=== PATIENT | male | born 1950 | race Caucasian/White ===

== ENCOUNTER → 2018-02-06 | Outpatient (CLI) | payer BC | LOC: M RAD 08:31 | DX: M51.26 Other intervertebral disc displacement, lumbar region (principal); M51.27 Other intervertebral disc displacement, lumbosacral region; M48.061 Spinal stenosis, lumbar region without neurogenic claudication | CPT/HCPCS: 72148 ==

== ENCOUNTER 2019-02-05 10:30 | Inpatient (IN) | payer OTHER, MEDICARE ==
--- NOTE | 2019-02-04 11:38 | HPE ---
DATE OF ADMISSION: 02/12/2019 ATTENDING PHYSICIAN: Dr. Mccoy ADMITTING DIAGNOSES: Back pain, right leg pain. HISTORY: This a pleasant 68-year-old male patient with progressively worsening back pain and pain mainly down his right leg. He has had studies consistent with spinal stenosis and spondylolisthesis of the lumbar spine. He has elected for surgery for his continued symptoms. His symptoms with activities of daily living. He has failed to improve with conservative management. He has been consented by Dr. Mccoy for a right L5 unilateral laminectomy as well as an L4 unilateral laminectomy as well as posterior intertransverse fusion in situ l4 and l5 with the use of right or left iliac crest graft and bone bank graft. MRI is consistent with spinal stenosis and spondylolisthesis at L4-5. Medical optimization through his primary doctor, Dr. Serrano. MEDICAL CONDITIONS: Lumbar spinal stenosis L4-5. Lumbar spondylolisthesis L4-5. Neurogenic claudication. Hypertension. Diabetes type 2. Gastric reflux disease. Elevated cholesterol. Hypothyroidism. CURRENT MEDICATIONS: - gabapentin 100 mg 1 tablet once per day - diclofenac 75 mg 1 tablet once per day. He will discontinue that 5 days prior to surgery. - Prilosec 40 mg 1 tablet once per day - calcium 600 mg 1 tablet with meals twice a day - saw palmetto 500 mg 1 tablet once per day - daily multivitamin - aspirin 81 mg 1 tablet once per day. He will discontinue that 5 days prior to surgery. - paroxetine 10 mg 1 tablet in the morning - lisinopril 2.5 mg 1 tablet once per day - Norvasc 10 mg 1 tablet once per day - Januvia 100 mg 1 tablet once per day - glyburide 5 mg 2 tablets twice a day - Lantus as 13 units daily - vitamin C [id number] - levothyroxine 50 mcg 1 tablet once per day in the morning - Flexeril 10 mg as needed ALLERGIES: 1. CRESTOR. 2. TETRACYCLINE. 3. PENICILLIN. SURGICAL HISTORY: He has had: 1. Hernia repair. 2. Left rotator cuff repair. FAMILY HISTORY: Noncontributory. SOCIAL HISTORY: He does not smoke. He does not use alcohol. He is currently retired. REVIEW OF SYSTEMS: Denies fever or chills. Denies chest pain, shortness breath or cough. Denies difficulty breathing. Denies abdominal pain. Denies nausea or vomiting. Has persistent pain mainly down his right leg, persistent back pain. He has pain with ambulating. Denies any changes in his bowel or bladder habits. PHYSICAL EXAM: Exam today reveals alert well-nourished, well-developed male patient who uses a set of crutches to ambulate. He is in a well-fitting back brace. He grimaces going from the sitting to the standing position. Straight leg raise testing is negative. Deep tendon reflexes are absent knees, ankles. Exam of back reveals the skin to be intact. No erythema, edema or ecchymosis. There is tenderness diffusely around the lumbar spine. His gait is not wide-based. His mood and affect are appropriate. Neck is supple without adenopathy or jugular venous distention (JVD). Lungs are clear to auscultation without rales or wheeze. Heart regular rate and rhythm. Abdomen bowel sounds are present. Current vital signs: Height 67 inches, weight 235 pounds, temperature 98.7, blood pressure 120/70, respirations 18, pulse 87. EKG sinus rhythm. Chest x-ray no acute cardiopulmonary disease process noted. Glucose 195, BUN 21, creatinine 1.0, sodium 143, potassium 4.4. UA within normal limits. WBC count of 4.9, RBC count of 5.1, hemoglobin 15.4, hematocrit 54.2. IMPRESSION: Symptomatic spinal stenosis L4-5 with neurogenic claudication and spondylolisthesis L4-5. PLAN: He was consented by Dr. Mccoy for a right unilateral laminectomy at L4 and L5 with posterior fusion in situ l4 and l5 with the use of iliac crest graft from the right or left hip and use of donor bone from the bone bank. [facility]
[~2019-02-05] VITALS: Ht 172.7 cm; Wt 105.3 kg
[~2019-02-05 10:30] MED LIST: AMLO10TA PO; GABA-843 PO; JANU100T PO; LANTINJ4 SC; LEVO25TA5 PO; LISI-1046 PO; MULTCAP PO; OXYC1TAB23 PO; PARO5TAB PO; PRIL20TA2 PO; SAW160CA PO; VITA100T59 PO; ZOCO10TA PO
[2019-02-12] MEDS ORDERED: LR 1,000 ML IV ONE (06:00)
[2019-02-12] MEDS ORDERED: GABAPENTIN 300 MG CAP PO ONE (06:00)
[2019-02-12] MEDS ORDERED: PERCOCET 5MG/325MG TAB PO ONE (06:00)
[2019-02-12] MEDS ORDERED: BUPIVACAINE HCL 0.5% 10 ML VIAL As Ordered ONE (10:31)
[2019-02-12] MEDS ORDERED: BUPIVACAINE/EPIN 0.25% 30 ML VIAL As Ordered ONE (10:31)
[2019-02-12] MEDS ORDERED: VANCOMYCIN HCL 500 MG/10 ML VIAL (J3370) As Ordered ONE (10:32)
[2019-02-12] MEDS ORDERED: BUPIVACAINE LIPOSOME/PF 1.3% 20ML VIAL (13.3MG/ML)(EXPAREL)(C9290 PER1MG) As Ordered ONE ×2 (10:32→12:56)
[2019-02-12] MEDS ORDERED: EPINEPHrine INJ 1 MG/ML 1ML AMP As Ordered ONE (10:32)
[2019-02-12] MEDS ORDERED: BACITRACIN PWD 50,000 UNITS VIAL As Ordered ONE (10:33)
[2019-02-12] MEDS ORDERED: THROMBIN SOLN 20,000 UNITS KIT As Ordered ONE (10:33)
[2019-02-12] MEDS ORDERED: TRANEXAMIC ACID 100 MG/ML 10ML VIAL As Ordered ONE (10:42)
[2019-02-12] MEDS ORDERED: HumaLOG INSULIN (NovoLOG) PER UNIT As Ordered ONE (10:52)
[2019-02-12] MEDS ORDERED: HumaLOG INSULIN (NovoLOG) PER UNIT SC ONE ×3 (11:00→19:15)
[2019-02-12] MEDS ORDERED: fentaNYL 250 MCG/5 ML INJECTION (J3010) As Ordered ONE (13:49)
[2019-02-12] MEDS ORDERED: PROPOFOL 200 MG/20 ML VIAL As Ordered ONE ×2 (13:49→17:13)
[2019-02-12] MEDS ORDERED: MIDAZOLAM INJ 2 MG/2 ML VIAL (J2250) As Ordered ONE (13:49)
[2019-02-12] MEDS ORDERED: LIDOCAINE 2% INJ 100 MG/5 ML SDV (FOR ANES.) As Ordered ONE (13:49)
[2019-02-12] MEDS ORDERED: ACETAMINOPHEN 1000MG 100ML IV BTL (OFIRMEV) (J0131 PER 10MG) As Ordered ONE (13:49)
[2019-02-12] MEDS ORDERED: dexameTHASONE 4 MG/ML 1ML VIAL (J1100) As Ordered ONE (13:49)
[2019-02-12] MEDS ORDERED: ONDANSETRON 4MG/2ML VIAL (J2405) As Ordered ONE (13:49)
[2019-02-12] MEDS ORDERED: SUGAMMADEX SODIUM 500 MG/5 ML VIAL (BRIDION) As Ordered ONE (13:49)
[2019-02-12] MEDS ORDERED: ePHEDrine SULFATE 25 MG/5 ML(5MG/ML) SYRINGE As Ordered ONE (13:50)
[2019-02-12] MEDS ORDERED: fentaNYL 100 MCG/2 ML INJECTION (J3010) As Ordered ONE ×2 (15:26→16:50)
[2019-02-12] MEDS ORDERED: ROCURONIUM BROMIDE 50 MG/5 ML VIAL As Ordered ONE (18:14)
[2019-02-12] MEDS ORDERED: HYDROMORPHONE HCL 0.5 MG/ 0.5 ML SYRINGE (J1170 PER 1) IV PRN ×2 (18:15→18:30)
[2019-02-12] MEDS ORDERED: LR 1,000 ML IV SCH (18:15)
[2019-02-12] MEDS ORDERED: ONDANSETRON 4MG/2ML VIAL (J2405) IV PRN (18:15)
[2019-02-12] MEDS ORDERED: fentaNYL 100 MCG/2 ML INJECTION (J3010) IV PRN (18:15)
[2019-02-12] MEDS ORDERED: ACETAMINOPHEN TAB 650MG DOSE (2X325MG) PO PRN (18:30)
[2019-02-12] MEDS ORDERED: PERCOCET 5MG/325MG TAB PO PRN (18:30)
[2019-02-12] MEDS: oxyCODONE 5MG TAB PO PRN ×2 (19:10→19:40)
[2019-02-12] MEDS ORDERED: oxyCODONE 5MG TAB As Ordered ONE (19:39)
[2019-02-12 20:06] VITALS: BP 145/87
[2019-02-12 20:35] VITALS: BP 140/86
[2019-02-12] MEDS ORDERED: HumaLOG INSULIN (NovoLOG) PER UNIT SC SCH (21:00)
[2019-02-12] MEDS ORDERED: LEVEMIR (INSULIN DETEMIR) 1 UNITS/0.01ML SC SCH (21:00)
--- NOTE | 2019-02-12 21:20 | HPEPDOC ---
General Date of Admission Feb 12, 2019 at 09:55 Date of Service: Feb 12, 2019 Chief Complaint The patient is a 68-year-old male admitted with a reason for visit of Spinal Stenosis. Source: Patient, RN/MD History of Present Illness Consultation Report Consultation requested by Dr Mccoy Consultation For management of medical comorbidities. HPI: 68 year old male has been admitted for Elective Lumber laminectomy and fusion and hospitalist service has been consulted for management of his medical comorbidities. As present says that the numbness from anaesthesia is gone and he is feeling a pain at the lower back is about 5/10 in intensity, dull aching and throbbing in nature. Really got worse after he walked to the bathroom. No radiation . Home Medications Scheduled Amlodipine Besylate (Norvasc) 10 Mg Tablet, 10 MG PO DAILY, (Reported) Ascorbic Acid (Vitamin C) 100 Mg Tablet, 500 TAB PO DAILY, (Reported) Gabapentin (Gabapentin) 300 Mg Capsule, 300 MG PO TID, (Reported) Insulin Glargine,Hum.rec.anlog (Lantus Solostar) 100 Unit/1 Ml Insuln.pen, 13 UNIT SC QPM, (Reported) Levothyroxine Sodium (Levothyroxine Sodium) 25 Mcg Tablet, 25 MCG PO DAILY, (Reported) Lisinopril (Lisinopril) 2.5 Mg Tablet, 2.5 MG PO DAILY, (Reported) Multivitamin (Multivitamins) 1 Each Capsule, 1 CAP PO DAILY, (Reported) Omeprazole Magnesium (Prilosec Otc) 20 Mg Tablet.dr, 40 MG PO DAILY, (Reported) Paroxetine (Paroxetine HCl) 10 Mg Tablet, 10 MG PO DAILY, (Reported) [place] (Saw [place]) 160 Mg Capsule, 160 MG PO DAILY, (Reported) Simvastatin (Zocor) 10 Mg Tablet, 10 MG PO DAILY, (Reported) Sitagliptin Phosphate (Januvia) 100 Mg Tablet, 100 MG PO DAILY, (Reported) Scheduled PRN Oxycodone HCl/Acetaminophen (Oxycodone-Acetaminophen 5-325) 1 Each Tablet, 1 TAB PO QIDP PRN for pain, (Reported) Allergies Coded Allergies: rosuvastatin (Verified Allergy, Unknown, 02/12/19) tetracycline (Verified Allergy, Unknown, 02/12/19) Past Medical History Medical History Lumbar spinal stenosis L4-5. Lumbar spondylolisthesis L4-5. Neurogenic claudication. Hypertension. Diabetes type 2. Gastric reflux disease. Hyperlipidemia Hypothyroidism. Surgical History bilateral cataract surgeries left shoulder surgery groin hernia repair in 1956 Family History Significant Family History: Diabetes (father, granfather, sister) Social History * Smoker: Denies Alcohol: Denies Drugs: denies A-FIB/CHADSVASC A-FIB History Current/History of A-Fib/PAF?: No Review of Systems Constitutional: Denies: Chills, Fever, Night Sweats Eyes: Denies: Pain, Vision change ENT: Denies: Head Aches, Ear Pain, Dysphagia Skin: Denies: Rash, Lesions, Breakdown Pulmonary: Denies: Dyspnea, Cough Cardiovascular: Denies: Chest Pain, Palpitations, Orthopnea, Paroxysmal Noc. Dyspnea, Lt Headedness Gastrointestinal: Denies: Nausea, Vomiting, Abdominal Pain, Diarrhea Genitourinary: Denies: Dysuria, Frequency, Incontinence, Retention Hematologic: Denies: Bruising, Bleeding Excessively Musculoskeletal: Reports: Back Pain Physical Examination General Exam: Positive: Alert, Cooperative, No Acute Distress Eye Exam: Positive: PERRLA, Conjunctiva & lids normal, EOMI; Negative: Sclera icteric ENT Exam: Positive: Atraumatic, Mucous membr. moist/pink, Pharynx Normal Neck Exam: Positive: Supple; Negative: JVD, thyromegaly Chest Exam: Positive: Clear to auscultation, Normal air movement Heart Exam: Positive: Tachycardic, Regular Rhythm, Normal S1, Normal S2 Abdomen Exam: Positive: BS Hypoactive, Soft; Negative: Tenderness, Hepatospenomegaly Extremity Exam: Positive: Normal pulses; Negative: Clubbing, Cyanosis, Edema Skin Exam: Positive: Nl turgor and temperature; Negative: Breakdown, Lesion Vital Signs Vital Signs Date Time Temp Pulse Resp B/P (MAP) Pulse Ox O2 Delivery O2 Flow Rate FiO2 02/12/19 19:22 97.1 96 16 147/79 (101) 93 2 Laboratory Data Labs 24H Laboratory Tests 2 02/12/19 10:37: Bedside Glucose (Misc Panel) 287H 02/12/19 12:24: Bedside Glucose (Misc Panel) 264H 02/12/19 18:03: Bedside Glucose (Misc Panel) 259H 02/12/19 18:40: Bedside Glucose (Misc Panel) 292H 02/12/19 19:13: Bedside Glucose (Misc Panel) 275H Assessment/Plan 68 year old male has been admitted for Elective Lumber laminectomy and fusion and hospitalist service has been consulted for management of his medical c omorbidities. Lumbar spinal stenosis L4-5 and Lumbar spondylolisthesis L4-5. S/p Lumber laminectomy and fusion on 02/12/19 pain control and DVT prophylaxis as per ortho. Bowel regimen as per ortho Hypertension. continue amlodipine and lisinopril Diabetes type 2. continue januvia will give half dose of levemir in place of lantus tonight lispro as per sliding scale. Gastric reflux disease. continue Omeprazole Hyperlipidemia Continue statin Hypothyroidism. Continue Synthroid Obesity Plan / VTE VTE Prophylaxis Ordered?: Yes YANET KHAN MD Feb 12, 2019 20:23
[2019-02-12 21:32] VITALS: BP 141/85
[2019-02-12] MEDS: GABAPENTIN 300 MG CAP PO SCH (22:05)
[2019-02-12] MEDS: OMEPRAZOLE 20 MG CAP PO SCH (22:05)
[2019-02-12 22:29] VITALS: BP 140/85
[2019-02-12] MEDS: PERCOCET 5MG/325MG TAB PO PRN (22:59)
[2019-02-12 23:26] VITALS: BP 136/83
[2019-02-13 00:30] VITALS: BP 135/84
[2019-02-13] MEDS: PERCOCET 5MG/325MG TAB PO PRN ×3 (03:55→12:30)
[2019-02-13 04:30] VITALS: BP 117/64
[2019-02-13] MEDS ORDERED: GLUCOSE 4 GM CHEW TABLET PO PRN (05:00)
[2019-02-13] MEDS ORDERED: GLUCAGON FOR INJ 1 MG VIAL (J1610) SC PRN (05:00)
[2019-02-13] MEDS ORDERED: DEXTROSE 50% 50 ML SYRINGE IV PRN (05:00)
[2019-02-13] MEDS ORDERED: LEVOTHYROXINE 25MCG TABLET (0.025MG) PO SCH (06:00)
[2019-02-13] MEDS ORDERED: PERC5TAB12 PO (07:02)
[2019-02-13 07:03] LABS: BLOOD UREA NITROGEN 20 MG/DL (7-18); CALCIUM LEVEL 8.9 MG/DL (8.8-10.2); CARBON DIOXIDE LEVEL 28 MEQ/L (21-32); CHLORIDE LEVEL 103 MEQ/L (98-107); CREATININE FOR GFR 1.16 MG/DL (0.70-1.30); GLOMERULAR FILTRATION RATE > 60.0 (>49); GLUCOSE, FASTING 303 MG/DL (70-100); POTASSIUM SERUM 4.4 MEQ/L (3.5-5.1); SODIUM LEVEL 137 MEQ/L (136-145)
[2019-02-13] MEDS ORDERED: glyBURIDE 2.5 MG TAB PO SCH (07:30)
[2019-02-13] MEDS ORDERED: HumaLOG INSULIN (NovoLOG) PER UNIT SC SCH ×2 (07:30→21:00)
[2019-02-13] MEDS: HumaLOG INSULIN (NovoLOG) PER UNIT SC SCH ×2 (07:58→12:30)
[2019-02-13] MEDS: OMEPRAZOLE 20 MG CAP PO SCH (07:59)
[2019-02-13 08:00] VITALS: BP 143/83
[2019-02-13] MEDS: GABAPENTIN 300 MG CAP PO SCH (08:00)
[2019-02-13 09:00] VITALS: BP 143/83
[2019-02-13] MEDS ORDERED: PARoxetine 10MG TABLET PO SCH (09:00)
[2019-02-13] MEDS ORDERED: METAMUCIL (PSYLLIUM) PACKET PO SCH (09:00)
[2019-02-13] MEDS ORDERED: SITagliptin 50 MG TAB (JANUVIA) PO SCH (09:00)
[2019-02-13] MEDS ORDERED: amLODIPine 10 MG TAB PO SCH (09:00)
[2019-02-13] MEDS ORDERED: PNEUMOCOCCAL VACCINE 0.5ML SYRINGE(90732) PNEUMOVAX 23 IM ONE (09:00)
[2019-02-13] MEDS ORDERED: SIMVASTATIN 10 MG TAB PO SCH (09:00)
[2019-02-13] MEDS ORDERED: LISINOPRIL *2.5 MG* TAB PO SCH (09:00)
[2019-02-13 09:08] VITALS: BP 143/83
[2019-02-13 10:00] VITALS: BP 143/83
--- NOTE | 2019-02-14 12:23 | RO ---
DATE OF PROCEDURE: PREOPERATIVE DIAGNOSIS: Severe spinal stenosis at L4-5, spondylolisthesis L4-5, lumbar spondylosis, neurogenic claudication right lower extremity. POSTOPERATIVE DIAGNOSIS: Severe spinal stenosis at L4-5, spondylolisthesis L4-5, lumbar spondylosis, neurogenic claudication right lower extremity. PROCEDURE PERFORMED FOLLOWS: We implemented a laminectomy infusion, specifically a right unilateral laminectomy of L4, for decompression of thecal sac and exiting nerve root, a right unilateral laminectomy of L5 for decompression of the thecal sac and traversing nerve roots, a posterior intertransverse fusion from L4 to L5 using the iliac crest as well as donor bone graft, a left iliac crest bone graft harvest through a separate fascial incision. SURGEON: Rizwan Mccoy MD MMA FIGHTER: JONNA Larsen ANESTHESIA: General endotracheal. ESTIMATED BLOOD LOSS: Less than 200. COMPLICATIONS: None. INDICATIONS: Intractable discomfort especially down the right lower extremity along with back discomfort that is bothering the patient for a number of years but functionally worse over the course of the last year, MRI evidence of the above diagnosis. The patient elects for surgery. Consent reviewed in detail with the patient including a maxi discussion of pathology involved, the procedure proposed, alternatives including doing nothing, risks including but not limited to pain, failure, infection, bleeding, blood loss, incomplete relief of symptoms, need for additional surgery, nerve injury, paralysis, and other issues. He agrees to proceed. OPERATIVE COURSE: Identified in holding area. Site side verified. Brought to the operating room where he positioned on the Michael frame for exposure of the lumbar spine. Axillary rolls utilized. Knees slightly flexed. Once I and the police matron were comfortable with the patient's positioning, he was sterilely prepped and draped in the usual fashion for exposure of the lumbar spine. Next, first portion of the case we utilized 3.5 loupe magnification as well as a headlamp. I began standing on the patient's right side, Mr. Gordillo on the left side. However, through the case we did alternate for some dai portions. Next, the incision was outlined with a marking pen, infiltrated with 0.25% Marcaine with epinephrine, made with a #10 blade knife, developed down through skin and subcuticular tissues to the posterior lumbar fascia. The patient had significant subcutaneous tissue. Next, posterior lumbar fascia was identified. I used a sharp knife to open the posterior lumbar fascia to the right of midline and dissected down the L4 and L5 spinous processes to the L4-5 interspace and facet complex. Very large facet osteophytes were appreciated on the right side and removed using Leksell's in the course of this dissection. Next, I drilled the posterior lamina at L4 and placed a probe in the lamina. We then obtained a cross-table lateral x-ray plain film to verify our location. Once this was accomplished, we further developed the incision superiorly and inferiorly for exposure. Mr. Gordillo utilized the Evangelina retractor to help while I dissected out over the transverse processes of L4 and L5 on the patient's right side. Next, once this was accomplished, we again sharply reflected the posterior lumbar fascia off of the spinous processes of 4 and 5 to the left side and dissected out over the facet complexes into the transverse processes on the left side using the hot knife. Next, once this exposure was adequate, we placed the retractors, Next, at this stage, my loupe magnification and headlamp were removed. We brought in the sterilely draped operative microscope. Mr. Gordillo looked through oculars from the left, I through oculars on the right. This facilitated safe use of the high-speed bur. The high-speed bur was utilized to implement a right unilateral laminectomy of the L4 level continuing superiorly through the bare area of 4 and debriding the medial 25% the facet complex, which was quite arthritic. This continued inferiorly to the bare area of 5. Next, I elevated ligamentum flavum and removed some of it with pituitaries, elevated with curettes and removed it using Kerrison's. The thecal sac was quite compressed. I decompressed the lateral recess on the right side and implemented a foraminotomy on the right side, probed the neural foramina at L4-5 as well as tracing the traversing nerve root, which appeared to be decompressed significantly. Next, because of the severe stenosis being central we also dissected the contralateral side across the horizon through the laminectomy defect using curved curettes and Kerrison's. I utilized the suction Elke to implement this. Mr. Gordillo also assisted with positioning the retractors. Once I had decompressed the patient's left side through this approach, I inspected the wound. We appreciated no cerebrospinal fluid (CSF) leak. We irrigated using tranexamic acid (TXA) solution as well as saline solution. Next, once this was accomplished, the microscope was removed. We through a separate fascial incision obtained iliac crest from the left posterior-superior iliac spine. Once it was opened, it was removed using Leksell and large Yañez curettes. This area was irrigated, anesthetized with Exparel, packed with dry Gelfoam and capital TXA solution, and closed with interrupted stitch. Next, once we had obtained this bone graft, we did also mix 15 mL of donor bone crushed cancellous with the bur millings we had obtained during the laminectomy. We then decorticated the transverse processes of 4 and 5 on the left on the right side, and then Mr. Gordillo utilizing the Evangelina retractor assisted with exposure and I placed the bone graft over the transverse processes on the left side as well as decorticating the facet complex and placing some bone graft around the facet complex and interlaminar space on the left. On the right, the bone graft was placed in the intertransverse space from 4 to 5. Once this was accomplished, we again irrigated the midline. I did place a gram of vancomycin crystals around the interlaminar space for infection prophylaxis. We also irrigated with the TXA solution and concentrated bacitracin. We utilized Exparel to anesthetize the local tissues for pain control. We closed the posterior lumbar fascia with interrupted #1 and #0 stitch. I placed a 7 flat drain, which extended into the right laminectomy defect to prevent perioperative hematoma. This was placed after the popoff stitches were placed and prior to closing them down. This exited superolaterally. Next, once this was accomplished, the fascial stitches were closed. Fermin fascia was also closed with interrupted stitch, deep dermis with interrupted stitch. Pernio dressing was applied, separate dressing over the drain. The patient was then able to be log-rolled to the hospital bed, extubated, moved to the recovery room in good condition. Was appreciated to be neurologically functional in the recovery room at the conclusion of the case. For further details, please refer to the medical record. Please note Mr. Gordillo was present and participated in the entirety case in the capacity of first aid director.
--- NOTE | 2019-02-18 18:16 | DSES ---
DATE OF ADMISSION: 02/12/2019 DATE OF DISCHARGE: 02/13/2019 ATTENDING PHYSICIAN: Dr. Rizwan Mccoy ADMISSION DIAGNOSIS: Lumbar spinal stenosis and lumbar spondylolisthesis L4-5 with neurogenic claudication, right lower extremity. OTHER DIAGNOSES: 1. Hypertension. 2. Diabetes, type 2. 3. Gastric reflux disease. 4. Elevated lipids. 5. Hypothyroidism. DISCHARGE DIAGNOSIS: Spinal stenosis and spondylolisthesis, lumbar L4-5, neurogenic claudication, right lower extremity, status post right unilateral laminectomy L4 and L5, posterior intertransverse fusion L4-5 with iliac crest and donor bone graft. HISTORY: This is a pleasant 68-year-old male patient with progressively worsening back pain and pain down his right leg. He has failed to improve with conservative management to include therapy, activity modification and injections. He has elected for surgery for his continued symptoms. He was admitted for elective right unilateral laminectomy L4 and L5, posterior intertransverse fusion L4-5 with iliac crest and donor bone graft. OPERATION PERFORMED: Right unilateral laminectomy at L4 and L5, posterior intertransverse fusion L4-5 with iliac crest and donor bone graft. HOSPITAL COURSE: The patient was admitted on the day of surgery and underwent the above-listed procedures. It was well-tolerated by the patient without incident. On the day of discharge, he was doing well and his pain was controlled. He will resume his preoperative medications and diet. He will use oral pain medications for pain control and he will use his brace as directed. He was given instructions to include the use of the brace, activity limitations and wound monitoring. He will followup in our office in 7-10 days for surgical followup. Please refer to the medical record further detail.
== END 2019-02-13 14:10 | disposition home or self-care (01) | DRG 460 ==
LOC: M OR 02-12 09:55 → M MS5PR 02-12 19:51
PROVIDERS: ADMIT Orthopaedic Surgery; ATTEND Orthopaedic Surgery
PROC: 00NY0ZZ Release Lumbar Spinal Cord, Open Approach (ICD-10-PCS; 2019-02-12)
PROC: 0SG107J Fusion of 2 or more Lumbar Vertebral Joints with Autologous Tissue Substitute, Posterior Approach, Anterior Column, Open Approach (ICD-10-PCS; principal; 2019-02-12 13:45)
DX: M48.062 Spinal stenosis, lumbar region with neurogenic claudication (principal); M43.16 Spondylolisthesis, lumbar region; I10 Essential (primary) hypertension; E11.9 Type 2 diabetes mellitus without complications; K21.9 Gastro-esophageal reflux disease without esophagitis; E78.00 Pure hypercholesterolemia, unspecified; E03.9 Hypothyroidism, unspecified; Z79.82 Long term (current) use of aspirin; Z79.4 Long term (current) use of insulin; Z79.899 Other long term (current) drug therapy; Z88.0 Allergy status to penicillin; Z88.1 Allergy status to other antibiotic agents; Z88.8 Allergy status to other drugs, medicaments and biological substances; Z98.41 Cataract extraction status, right eye; Z98.42 Cataract extraction status, left eye

== ENCOUNTER → 2019-12-12 | Outpatient (CLI) | payer OTHER, MEDICARE ==
[~2019-12-12] MED LIST changes: +ASPI81TA85 PO; +CALC600T60 PO; +GLYB5TA PO; -LISI-1046 PO; +LISI2.5T2 PO; +PERC5TAB12 PO; +POTA2.5T PO; +TRUL10IN SC; +XARE10TA PO
== END ==
LOC: M LABSMTC 10:47
PROVIDERS: ATTEND Anesthesiology
DX: Z01.818 Encounter for other preprocedural examination (principal); Z11.59 Encounter for screening for other viral diseases

== ENCOUNTER 2019-12-15 13:13 | Inpatient (IN) | payer BC, MEDICARE ==
--- NOTE | 2019-12-11 11:07 | HPE ---
DATE OF ADMISSION: 12/15/2019 ATTENDING PHYSICIAN: Dr. Rizwan Mccoy CHIEF COMPLAINT: Right hip pain and stiffness. HISTORY: The patient is a pleasant 69-year-old male with progressively worsening right hip pain and stiffness. He failed to improve with conservative measures. He continued to have symptoms with weightbearing activities and activities of daily living. He consented for an elective right total hip arthroplasty with Dr. Mccoy for his continued symptoms. Medical optimization pending with Dr. Serrano. CURRENT MEDICATIONS: - gabapentin 100 mg daily - Prilosec 40 mg twice daily - Januvia 100 mg daily - Paxil 10 mg daily - levothyroxine 25 mcg daily - Lantus 10 units daily - Advil 200 mg as needed - Norvasc 10 mg daily - glyburide 5 mg twice daily - Zocor 10 mg daily - lisinopril 2.5 mg daily - diclofenac gel 1% as needed CHRONIC MEDICAL CONDITIONS: 1. Hyperlipidemia. 2. Hypertension. 3. Gastroesophageal reflux disease. 4. Sinusitis. 5. Osteoarthritis. 6. Diabetes. 7. Benign prostatic hyperplasia (BPH). 8. Cervical spinal stenosis. 9. Elevated liver function tests. SURGICAL HISTORY: 1. Hernia repair. 2. Left shoulder rotator cuff repair. 3. Lumbar right unilateral laminectomy at L4-L5. ALLERGIES: - TETRACYCLINE - CRESTOR - ADHESIVES SOCIAL HISTORY: The patient does not use tobacco products. Occasionally consumes alcohol. He does live at home with his . REVIEW OF SYSTEMS: The patient denies fevers, chills, nausea, vomiting or diarrhea. Denies chest pain, shortness of breath, lightheadedness, dizziness or headaches. He denies any abdominal pain. Denies any recent upper respiratory or urinary tract infection symptoms. He does continue to have right hip pain with weightbearing activities and activities of daily living. PHYSICAL EXAMINATION: General: Well-nourished, well-developed male in no apparent distress. He is alert, oriented and cooperative. Mood and affect are appropriate. Vital Signs: Blood pressure 120/70, heart rate 64, respirations 16, temperature 96.8, height 68 inches, weight 225 pounds. Neck: Supple, without lymphadenopathy. Heart: Regular rate and rhythm. Lungs: Clear to auscultation bilaterally. Abdomen is soft and nontender to palpation. Bowel sounds are present. Musculoskeletal: Right hip exhibits no gross abnormalities. There is tenderness to palpation at the lateral hip and groin. There is decreased internal and external rotation in addition to decreased flexion at the hip. Strength of the right lower extremity is 5/5. The patient is ambulating today with the use of a cane. His right lower extremity is warm and well perfused. Calf is soft and nontender to palpation. No evidence of deep vein thrombosis (DVT). He is neurovascularly intact distally. IMAGING AND LABORATORY DATA: Chest x-ray with no focal consolidation. Right hip x-ray notable for end-stage degenerative changes. Complete Blood Count: WBC 5.77, RBC 5.57, hemoglobin 16.1, hematocrit 47.6, platelets 160. INR is 1.01. Type and screen B+ with a negative antibody screen. Comprehensive Metabolic Profile: Fasting glucose elevated at 121, BUN 18, creatinine 1.180, GFR greater than 60, chloride 105, potassium 4.9, sodium is 142, carbon dioxide 28, anion gap 13.9, calcium 9.6, alkaline phosphatase 82, total protein 7.8, albumin 4.5, globulin 3.3, albumin-globulin ratio 1.4, total bilirubin elevated at 1.8, ALT elevated at 68, AST elevated at 42. IMPRESSION: Right hip osteoarthritis with x-rays notable for end-stage degenerative changes. PLAN: The patient has consented for an elective right total hip arthroplasty with Dr. Mccoy for his continued symptoms. Medical optimization pending with Dr. Serrano. The patient understands he will be nothing by mouth (n.p.o.) after midnight with the exception of any medications his primary child care teacher allows him to take the morning of surgery was a small sip of water. He will use his Hibiclens and Bactroban as directed. He will call Sunday afternoon for report time on Sunday. He will follow his primary child care teacher and warper tender recommendations for stopping daily medications and anticoagulants.
[~2019-12-15] VITALS: Ht 172.7 cm; Wt 103.0 kg
[~2019-12-15 13:13] MED LIST changes: +CelecoXIB 400 MG CAP PO SCH; +LIDOCAINE 1% MDV 20ML VIAL SQ PRN; +LR 1,000 ML IV ONE; +PERCOCET 5MG/325MG TAB PO ONE; +PREGABALIN 75 MG CAP(LYRICA) PO ONE; -XARE10TA PO
[2019-12-15] MEDS ORDERED: BUPIVACAINE/EPIN 0.25% 30 ML VIAL As Ordered ONE (15:20)
[2019-12-15] MEDS ORDERED: BUPIVACAINE LIPOSOME/PF 1.3% 20ML VIAL (13.3MG/ML)(EXPAREL)(C9290 PER1MG) As Ordered ONE (15:21)
[2019-12-15] MEDS ORDERED: ceFAZolin 1GM VIAL (J0690 PER 500MG) As Ordered ONE (15:21)
[2019-12-15] MEDS ORDERED: TRANEXAMIC ACID 100 MG/ML 10ML VIAL As Ordered ONE (15:21)
[2019-12-15] MEDS ORDERED: BUPIVACAINE HCL 0.5% 10ML VIAL As Ordered ONE (15:22)
[2019-12-15] MEDS ORDERED: EPINEPHrine INJ 1 MG/ML 1ML AMP As Ordered ONE (15:23)
[2019-12-15] MEDS ORDERED: ceFAZolin SOD 2 GM in IV 1 EA IV ONE (17:15)
[2019-12-15] MEDS ORDERED: ROCURONIUM BROMIDE 50 MG/5 ML VIAL As Ordered ONE (19:08)
[2019-12-15] MEDS ORDERED: fentaNYL 100 MCG/2 ML INJECTION (J3010) As Ordered ONE (19:42)
[2019-12-15] MEDS ORDERED: propofoL 500 MG/50 ML VIAL As Ordered ONE (19:42)
[2019-12-15] MEDS ORDERED: MIDAZOLAM INJ 2MG/2ML VIAL (J2250 PER 1MG) As Ordered ONE (19:42)
[2019-12-15] MEDS ORDERED: dexameTHASONE 4 MG/ML 1ML VIAL (J1100 PER 1MG) As Ordered ONE (19:43)
[2019-12-15] MEDS ORDERED: ePHEDrine SULFATE 25 MG/5 ML(5MG/ML) SYRINGE As Ordered ONE (19:48)
[2019-12-15] MEDS ORDERED: ONDANSETRON 4MG/2ML VIAL As Ordered ONE (20:02)
[2019-12-15] MEDS ORDERED: SUGAMMADEX SODIUM 500 MG/5 ML VIAL (BRIDION) As Ordered ONE (20:10)
[2019-12-15] MEDS ORDERED: HYDROmorphone HCL 2 MG/ML 1ML VIAL (J1170) As Ordered ONE (20:10)
[2019-12-15] MEDS ORDERED: KETOROLAC 60MG 2ML VIAL As Ordered ONE (20:10)
[2019-12-15] MEDS: HumaLOG INSULIN (NovoLOG) PER UNIT SC SCH (21:00)
[2019-12-15] MEDS: fentaNYL 100 MCG/2 ML INJECTION (J3010) IV PRN ×4 (21:55→22:17)
[2019-12-15] MEDS ORDERED: PROMETHAZINE INJ 25 MG/ML VIAL (J2550) IV PRN (22:00)
[2019-12-15] MEDS ORDERED: PERCOCET 5MG/325MG TAB PO PRN (22:00)
[2019-12-15] MEDS ORDERED: LR 1,000 ML IV SCH (22:00)
[2019-12-15] MEDS ORDERED: oxyCODONE 5MG TAB PO PRN (22:00)
[2019-12-15] MEDS ORDERED: ONDANSETRON 4MG/2ML VIAL IV PRN ×2 (22:00)
[2019-12-15] MEDS ORDERED: D5W/0.45% SODIUM CHLORIDE 1,000 ML IV SCH (22:00)
[2019-12-15 23:00] VITALS: BP 114/71
[2019-12-15 23:30] VITALS: BP 119/68
[2019-12-16] VITALS (8 sets, daily range): BP systolic 118–151; BP diastolic 66–88
[2019-12-16] MEDS ORDERED: GLUCAGON INJ 1MG VIAL SC PRN (00:15)
[2019-12-16] MEDS ORDERED: GLUCOSE 4GM CHEW TABLET PO PRN (00:15)
[2019-12-16] MEDS ORDERED: DEXTROSE 50% 50 ML SYRINGE IV PRN (00:15)
[2019-12-16] MEDS ORDERED: HYDROmorphone HCL 2 MG/ML 1ML VIAL (J1170) IV PRN (00:45)
[2019-12-16] MEDS: ceFAZolin SOD 2 GM in IV 1 EA IV SCH ×2 (04:36→12:30)
[2019-12-16] MEDS: PERCOCET 5MG/325MG TAB PO PRN ×3 (04:37→19:01)
[2019-12-16] MEDS ORDERED: PERC5TAB12 PO (06:29)
[2019-12-16] MEDS ORDERED: XARE10TA PO (06:29)
[2019-12-16 07:33] LABS: HEMATOCRIT 40.3 % (42.0-52.0); HEMOGLOBIN 13.6 g/dl (13.5-17.5); MEAN CORPUSCULAR HEMOGLOBIN 29.6 pg (27.0-33.0); MEAN CORPUSCULAR HGB CONC 33.7 g/dl (32.0-36.5); MEAN CORPUSCULAR VOLUME 87.6 fl (80.0-96.0); PLATELET COUNT, AUTOMATED 145 10^3/uL (150-450); WHITE BLOOD COUNT 13.6 10^3/uL (4.0-10.0)
[2019-12-16] MEDS: MIRALAX *UNIT DOSE* 17GM PACKET PO SCH (08:12)
[2019-12-16] MEDS: LEVEMIR (INSULIN DETEMIR) 1 UNITS/0.01ML SC SCH ×2 (08:12→20:50)
[2019-12-16] MEDS: MOM 30ML SUSPENSION UDC PO SCH (08:12)
[2019-12-16] MEDS: HumaLOG INSULIN (NovoLOG) PER UNIT SC SCH ×4 (08:12→20:51)
--- NOTE | 2019-12-16 08:12 | REP ---
Clinical: Status post arthroplasty. Technique: Portable AP and cross-table lateral views. Findings: The patient is status post right hip replacement with normal positioning and appearance to the femoral and acetabular components. Overlying postsurgical changes appreciated. Impression: Satisfactory right hip replacement radiographs. Electronically Signed by Hong Guzman MD 12/16/2019 08:03 A
[2019-12-16] MEDS: PARoxetine 10MG TABLET PO SCH (08:13)
[2019-12-16] MEDS: OMEPRAZOLE 20 MG CAP PO SCH (08:14)
[2019-12-16] MEDS: LISINOPRIL *2.5 MG* TAB PO SCH (08:14)
[2019-12-16] MEDS: amLODIPine 10 MG TAB PO SCH (08:14)
[2019-12-16] MEDS: SIMVASTATIN 10 MG TAB PO SCH (08:14)
[2019-12-16] MEDS: LEVOTHYROXINE 25MCG TABLET (0.025MG) PO SCH (08:14)
[2019-12-16] MEDS ORDERED: CelecoXIB (CeleBREX) 100 MG CAP PO ONE (09:00)
[2019-12-16] MEDS ORDERED: RIVAROXABAN 10 MG TAB (XARELTO) PO ONE (18:00)
[2019-12-16] MEDS ORDERED: PERCOCET 5MG/325MG TAB PO PRN ×2 (23:15)
[2019-12-17 05:46] LABS: HEMATOCRIT 36.6 % (42.0-52.0); HEMOGLOBIN 12.1 g/dl (13.5-17.5); MEAN CORPUSCULAR HGB CONC 33.1 g/dl (32.0-36.5); MEAN CORPUSCULAR VOLUME 87.8 fl (80.0-96.0); RED BLOOD COUNT 4.17 10^6/uL (4.30-6.10); WHITE BLOOD COUNT 8.7 10^3/uL (4.0-10.0)
[2019-12-17 06:00] VITALS: BP 134/79
[2019-12-17 06:29] LABS: PLATELET COUNT, AUTOMATED 97 10^3/uL (150-450)
[2019-12-17] MEDS: MIRALAX *UNIT DOSE* 17GM PACKET PO SCH (09:00)
[2019-12-17] MEDS: OMEPRAZOLE 20 MG CAP PO SCH (09:24)
[2019-12-17] MEDS: amLODIPine 10 MG TAB PO SCH (09:24)
[2019-12-17] MEDS: SIMVASTATIN 10 MG TAB PO SCH (09:24)
[2019-12-17 09:25] VITALS: BP 134/79
[2019-12-17] MEDS: LEVOTHYROXINE 25MCG TABLET (0.025MG) PO SCH (09:25)
[2019-12-17] MEDS: PARoxetine 10MG TABLET PO SCH (09:25)
[2019-12-17] MEDS: LEVEMIR (INSULIN DETEMIR) 1 UNITS/0.01ML SC SCH (09:25)
[2019-12-17] MEDS: LISINOPRIL *2.5 MG* TAB PO SCH (09:25)
[2019-12-17] MEDS: HumaLOG INSULIN (NovoLOG) PER UNIT SC SCH (09:26)
[2019-12-17] MEDS: MOM 30ML SUSPENSION UDC PO SCH (09:26)
[2019-12-17] MEDS ORDERED: RIVAROXABAN 10 MG TAB (XARELTO) PO SCH (18:00)
--- NOTE | 2019-12-18 10:54 | RO ---
DATE OF PROCEDURE: 12/15/2019 PREOPERATIVE DIAGNOSIS: Right hip osteoarthritis. POSTOPERATIVE DIAGNOSIS: Right hip osteoarthritis. PROCEDURE PERFORMED: Right total hip replacement. SURGEON: Dr. Rizwan Mccoy. BUILDING CONSTRUCTION TEACHER: Ludmila Devries PA-C ANESTHESIA: General, Dr. Gutierrez. ESTIMATED BLOOD LOSS: Less than 100. COMPLICATIONS: No complications. INDICATIONS: Progressive discomfort in the right hip due to arthritic change. The patient has elected for operative intervention. Consent reviewed in detail including maxi discussion of the pathology involved, procedure proposed, alternatives including doing nothing and risks including but not limited to pain, failure, infection, bleeding blood loss, blood clots, incomplete relief of symptoms, dislocation, need for additional surgery or other issues. The patient agrees to proceed with surgery. COMPONENTS USED: Include a size 6 femoral component, +1.5 femoral neck length high offset, size 54 mm acetabular shell, 36 mm acetabular liner, apex hole eliminator DePuy [place] system. DESCRIPTION OF PROCEDURE: Identified in the holding area, site side verified, brought to the operating room. The patient elected for general anesthesia. He was placed in the usual fashion for a lateral decubitus approach to the right hip for a modified [place] approach. Next, once he was sterilely prepped and draped in usual fashion, time-out was accomplished. The plane of incision infiltrated with 0.25% Marcaine with epinephrine, made with the 21-blade knife, developed down through skin and subcuticular tissues to the lateral fascia. Lateral fascia was opened using the 10-blade knife and Dinero scissor was then utilized to further release the lateral fascia. Abductor mechanism was encountered. Split was created at the anterior one-third down the femoral neck and splitting the minimus and capsular tissues. Next a tag suture was placed on the abductor mechanism and it was released on the anterior surface of the greater trochanter leaving the cuff of tissue for later repair. Next the dissection continued inferiorly splitting the vastus lateralis and releasing the hip capsule so that the lesser trochanter could be palpated. Next, once this was accomplished. Ms. Devries manipulated the hip and I dislocated the hip using the bone Hook. Next a trochanteric retractor was applied, femoral canal opening reamer was utilized, followed by the canal finding reamer, followed by the lateralizing reamer, followed by the standard reamers through a size 6. Next the neck cut guide was installed. I made the neck cut using the oscillating saw one fingerbreadth from the lesser trochanter. Femoral head was removed. Next, femoral broaches through a size 6 were utilized. Once this was accomplished the pulse lavage was utilized. Next, the anterior and posterior acetabular retractors were installed. I further released hip capsule, removed the transverse acetabular ligament, removed acetabular labrum using the hot knife. The floor of the acetabular fossa was removed using the hot knife. Next, once this was accomplished I reamed the acetabulum using the hemispherical reamers beginning with a size 48 and reaming through a size 53 as templated. This was to the floor the acetabulum. Next the 54 mm trial was installed using the targeting device and found to fit appropriately. Once this was accomplished, pulse lavage was implemented Exparel solution was injected using a 22 spinal needle around the hip capsule. Next the non-trial acetabular shell was obtained and installed using the targeting device, tamped into place using a mallet. [place] hole eliminator was installed. The 36 mm polyethylene liner was installed, tamped into place using nylon impactor verified to be seated using the [place]. Next attention was turned back to the femoral side. The 6 broach was installed and we trialled for a high offset +1.5 neck length. The hip was reduced and placed through a range of motion. It was found be stable in flexion and internal rotation as well as extension and external rotation. Soft tissue tension was appropriate. Next the hip was then dislocated. The non-trial femoral component was installed. The non- trial femoral head was installed, tamped into place skin with stainless steel 36 mm hip ball. Next the hip was reduced, pulse lavage was utilized. Additional Exparel solution was injected into the subcuticular and fascial tissues. TXA was allowed to stand for 1 minute. The minimus and capsular tissues were reapproximated using interrupted stitch. The medius tissue was re-approximated based on the position of the stay stitch and through bony tunnels using mattress and interrupted stitches. Vastus lateralis was reapproximated using a running #1-0 Vicryl stitch. The lateral fascia was reapproximated using interrupted stitch as well as a running Stratafix. Deep dermis tissues were reapproximated using interrupted stitch. Pernio dressing was placed on skin. Next, the patient was moved from the [place] frame to the supine position, moved to the hospital bed in good condition. For further details please refer to medical record. Please note that Ms Devries participated in the entirety case in capacity of certified ophthalmic surgical assistant utilizing retractors and assisting with dislocation and relocation of the hip at different times through the procedure.
== END 2019-12-17 10:00 | disposition home or self-care (01) | DRG 301 ==
LOC: M OR 13:13 → M MS5PR 23:00
PROVIDERS: ADMIT Orthopaedic Surgery; ATTEND Orthopaedic Surgery
PROC: 0SR90JZ Replacement of Right Hip Joint with Synthetic Substitute, Open Approach (ICD-10-PCS; principal; 2019-12-15 16:00)
DX: M16.11 Unilateral primary osteoarthritis, right hip (principal); I10 Essential (primary) hypertension; E78.5 Hyperlipidemia, unspecified; K21.9 Gastro-esophageal reflux disease without esophagitis; E11.9 Type 2 diabetes mellitus without complications; Z79.899 Other long term (current) drug therapy; Z88.8 Allergy status to other drugs, medicaments and biological substances; N40.0 Benign prostatic hyperplasia without lower urinary tract symptoms